=== PATIENT | female | born 1980 | race Caucasian/White ===

== ENCOUNTER 2021-03-15 11:07 | Emergency (ER) | payer OTHER, SELFPAY ==
[2021-03-15 11:31] VITALS: BP 119/88; PULSE 78; RESP 16; TEMP 36.7; O2SAT 99
[2021-03-15 12:11] VITALS: BP 115/77; PULSE 79; RESP 16; TEMP 36.8; O2SAT 100
[2021-03-15 12:14] LABS: Add Urine Microscopic? YES; Appearance Urine Cloudy (Clear); Bilirubin Urine Negative (Negative); Blood Urine 1+ (Negative); Color Urine Yellow (Yellow); Glucose Urine UA Negative (Negative); Ketones Urine Negative (Negative); Leukocyte Esterase Ur 2+ LEU/UL (Negative); Mucus Urine Rare /lpf; Nitrate Urine Negative (Negative); Protein Urine Negative (Negative); Specific Grav Ur 1.018 (1.001-1.035); Squamous Epithelial Cell Urine Few /hpf (Few); Urobilinogen Urine Negative mg/dL (<2.0); WBC Urine 51-75 /hpf
--- NOTE | 2021-03-15 12:38 | ED.FEMALEGU ---
HPI - Female Genitourinary General Chief complaint: Urogenital-Female Stated complaint: lower abd pain Time Seen by Provider: 03/15/21 12:18 Source: patient and RN notes reviewed Mode of arrival: ambulatory Limitations: no limitations History of Present Illness HPI Narrative: Patient presents with frequent urination and burning sensation and some pain at the left lower back. Patient denies any fever, chills, nausea, vomiting, vaginal bleeding or discharge. Related Data Home Medications Medication Instructions Recorded Confirmed acyclovir 03/15/21 Allergies Allergy/AdvReac Type Severity Reaction Status Date / Time dicyclomine Allergy Unknown Other Verified 03/15/21 12:19 Review of Systems Review of Systems: CONSTITUTIONAL: Denies fever, chills, or sweats. EYES: Denies visual changes, redness, or discharge. ENT: Denies rhinorrhea, congestion, sore throat, or otalgia. CARDIOVASCULAR: Denies chest pain, palpitations, or edema. RESPIRATORY: Denies cough or dyspnea. GASTROINTESTINAL: Denies abdominal pain, nausea, vomiting, or diarrhea. GENITOURINARY: Denies dysuria or hematuria. SKIN: Denies rash or itching. MUSCULOSKELETAL: Denies back pain, joint pain, or myalgia. NEUROLOGIC: Denies headache, numbness, or weakness. PSYCHIATRIC: Denies anxiety or depression. Exam Narrative: General appearance: Well-developed, well-nourished Skin: Normal color Head: Normocephalic, nontraumatic Eyes: Clear conjunctiva ENT: Oropharynx normal, ears normal, nose normal Neck: Supple, nontender Chest and respiratory: Airway patent, no respiratory distress, no accessory muscle use Heart: Regular rate/rhythm Abdomen: Soft, nontender, no organomegaly, quiet bowel sounds slight left lower quadrant and left tenderness Vascular: Normal peripheral pulses, normal capillary refill. 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, no gross motor deficit Course Course Emergency Course: Stable Vital Signs Vital signs: Vital Signs Temperature 36.7 C 03/15/21 11:31 Pulse Rate 78 03/15/21 11:31 Respiratory Rate 16 03/15/21 11:31 Blood Pressure 119/88 03/15/21 11:31 Pulse Oximetry 99 03/15/21 11:31 Temperature 36.8 C 03/15/21 12:11 Pulse Rate 79 03/15/21 12:11 Respiratory Rate 16 03/15/21 12:11 Blood Pressure 115/77 03/15/21 12:11 Pulse Oximetry 100 03/15/21 12:11 MDM - Female Genitourinary MDM Narrative Medical decision making narrative: UTI is my concern Differential Diagnosis Differential diagnosis: Likely urinary tract infection Lab Data Labs: Lab Results 03/15/21 Range/Units 11:40 Urine Color Yellow (Yellow) Urine Appearance Cloudy H (Clear) Urine pH 6.0 (5.0-9.0) Ur Specific [place] 1.018 (1.001-1.035) Urine Protein Negative (Negative) mg/dL Urine Glucose (UA) Negative (Negative) mg/dL Urine Ketones Negative (Negative) mg/dL Ur Blood (Man) 1+ H (Negative) Urine Nitrate Negative (Negative) Urine Bilirubin Negative (Negative) Urine Urobilinogen Negative (<2.0) mg/dL Leukocyte Esterase Rfl 2+ H (Negative) NIMO/UL Urine RBC 6-10 H (0-2) /hpf Urine WBC 51-75 H /hpf Ur Squamous Epith Cells Few (Few) /hpf Urine Mucus Rare /lpf Critical Care Time Critical Care Time Critical Care Time: No Discharge Plan Discharge Clinical Impression: Urinary tract infection Patient Disposition: Home, Self-Care Condition: Stable Instructions: Antibiotic Form, Urinary Tract Infection in Women (ED) Additional Instructions: Return if symptoms are worsening , call your family physician for appoin
[2021-03-15 13:06] VITALS: BP 115/78; PULSE 77; RESP 16; O2SAT 100
== END 2021-03-15 13:07 | disposition home or self-care (01) ==
PROVIDERS: Emergency Medicine; Emergency Provider Emergency Medicine; PCP Internal Medicine
DX: N39.0 Urinary tract infection, site not specified (principal)
CPT/HCPCS: 81001; 87077; 87086; 87088; 87186; 99283

== ENCOUNTER 2022-01-24 07:56 | Emergency (ER) | payer OTHER, SELFPAY ==
[2022-01-24] VITALS (17 sets, daily range): BP systolic 108–141; BP diastolic 71–88; PULSE 73–99; RESP 10–20; TEMP 36.8; O2SAT 98–99
--- NOTE | ~2022-01-24 | XR_ITS ---
XR chest 2V DATE: 01/24/2022 08:30 INDICATION: Cough, shortness of breath, congestion TECHNIQUE: PA and lateral views COMPARISON: 02/20/2018 PA and lateral chest FINDINGS: Normal heart size. No pulmonary infiltrate or consolidation, pleural effusion or pulmonary vascular congestion or pneumothorax is detected. No hilar or mediastinal enlargement. There is minimal levoscoliosis of the thoracic spine. IMPRESSION: No active cardiopulmonary disease Reviewed, dictated and finalized at location A.
--- NOTE | 2022-01-24 08:01 | ECG_ITS ---
Measurements Intervals [place] Rate: 79 P: 58 VA: 179 QRS: 39 QRSD: 75 T: 26 QT: 332 QTc: 381 Interpretive Statements SINUS RHYTHM SEPTAL MYOCARDIAL INFARCTION , PROBABLY OLD Electronically Signed On 01-24-2022 10:04:56 CDT by Camden Florence M.D.
[2022-01-24 08:23] LABS: Basophils Percent Auto 0.3 % (0.2-1.2); Eosinophils Absolute Auto 0.1 K/mm3 (0-0.3); Eosinophils Percent Auto 0.8 % (0-4.4); Hematocrit 42.6 % (37.0-47.0); Hemoglobin 13.7 g/dL (12.0-15.0); Immature Granulocyte Absolute 0.02 K/mm3 (0.00-0.031); Immature Granulocyte Percent A 0.2 % (0-0.5); Lymphocytes Absolute Auto 1.02 K/mm3 (0.9-3.2); Lymphocytes Percent Auto 11.4 % (18.3-44.2); Mean Corpuscular HGB Conc 32.2 g/dl (32-36); Mean Corpuscular Hemoglobin 29.5 pg (26-34); Mean Corpuscular Volume 91.8 fl (80-100); Mean Platelet Volume 10.1 fl (7.4-10.4); Monocytes Absolute Auto 0.4 K/mm3 (0.1-0.6); Monocytes Percent Auto 4.7 % (2.6-8.5); Neutrophils Absolute Auto 7.4 K/mm3 (1.3-6.7); Neutrophils Percent Auto 82.6 % (45.5-73.1); Platelet Count Result 202 k/mm3 (150-375); Red Blood Count 4.64 M/mm3 (4.2-5.4); Red Cell Distribution Width 14.4 % (11.5-14.5); White Blood Count 8.9 K/mm3 (4.5-10.0)
[2022-01-24 08:33] LABS: Alanine Aminotransferase 25 U/L (6-35); Albumin Level 4.5 g/dL (3.5-5.1); Alkaline Phosphatase 67 U/L (38-126); Anion Gap 4 mmol/L (8-16); Aspartate Amino Transferase 29 U/L (14-36); Bilirubin,Total 1.1 mg/dL (0.2-1.3); Blood Urea Nitrogen 11 mg/dL (7-17); Calcium 8.6 mg/dL (8.4-10.2); Carbon Dioxide 27 mmol/L (22-30); Chloride 109 mmol/L (98-107); Estimated CRCL calculation 83 ml/min; Estimated Glomerular Filt Rate > 60; Glucose 138 mg/dL (65-110); Potassium 3.6 mmol/L (3.4-5.0); Sodium 140 mmol/L (137-145)
--- NOTE | 2022-01-24 10:35 | ED.SOB ---
HPI - SOB/Dyspnea General Chief Complaint: Shortness of Breath/Dyspnea Stated Complaint: I think I have hay fever Time Seen by Provider: 01/24/22 08:21 Source: patient and family Mode of arrival: ambulatory Limitations: no limitations History of Present Illness HPI Narrative: 41-year-old otherwise healthy here with complaints of nonproductive cough for past few days. She denies any fever or chills. No previous history of asthma or COPD. She thinks she may have Hay fever . MD elicited complaint: shortness of breath and cough Onset (ago): day(s) (4) Timing: constant Severity: mild Exacerbating factors: nothing Relieving factors: nothing Associated symptoms: denies other symptoms Related Data Home oxygen amount: none Home Medications Medication Instructions Recorded Confirmed acyclovir 800 mg tablet 03/15/21 Allergies Allergy/AdvReac Type Severity Reaction Status Date / Time dicyclomine Allergy Unknown Other Verified 01/24/22 08:10 Review of Systems Review of Systems: All systems reviewed & are unremarkable except as noted in HPI and below Constitutional: Constitutional: Reports no additional constitutional complaints Eyes: Eyes: Reports no additional eye complaints ENT: Reports system reviewed and no additional complaints, except as documented Cardiovascular: Cardiovascular: Reports no additional cardiovascular complaints Respiratory: Respiratory: Reports as per HPI Gastrointestinal: Gastrointestinal: Reports no additional gastrointestinal complaints Musculoskeletal: Musculoskeletal: Reports no additional musculoskeletal complaints Integumentary/Breasts: Skin/Breast: Reports system reviewed and no additional complaints, except as docu Neurologic: Reports system reviewed and no additional complaints, except as documented Psychiatric: Psychiatric: Reports no additional psychiatric complaints Exam Narrative: GENERAL: Well-appearing, well-nourished, and in no acute distress. HEAD: Normocephalic, atraumatic. EYES: PERRLA and EOMI NECK: Supple. CHEST: Clear to auscultation. No respiratory distress. HEART: Regular rate and rhythm. No murmur heard. Normal peripheral pulses. ABDOMEN: Soft, nontender, nondistended, normal active bowel sounds. EXTREMITIES: Normal range of motion. No edema. SKIN: Warm, dry, no rash. NEURO: No focal deficits. Alert and oriented x3. PSYCH: Normal mood and affect. Course Course Emergency Course: 41-year-old otherwise healthy with no history of COPD or asthma now has dry nonproductive cough with no fever CBC, chemistry and chest x-ray were normal advised her to take prednisone, follow-up with her primary doctor Vital Signs Vital signs: Vital Signs Temperature 36.8 C 01/24/22 08:02 Pulse Rate 91 01/24/22 08:02 Respiratory Rate 18 01/24/22 08:02 Blood Pressure 126/77 01/24/22 08:02 Pulse Oximetry 99 01/24/22 08:02 Oxygen Delivery Room Air 01/24/22 08:02 Temperature 36.8 C 01/24/22 08:02 Pulse Rate 91 01/24/22 08:11 Respiratory Rate 18 01/24/22 08:02 Blood Pressure 126/77 01/24/22 08:02 Pulse Oximetry 99 01/24/22 08:02 Oxygen Delivery Room Air 01/24/22 08:02 MDM - SOB/Dyspnea Lab Data Result diagrams: 01/24/22 08:19 01/24/22 08:19 Labs: Lab Results 01/24/22 01/24/22 Range/Units 08:19 08:19 WBC 8.9 (4.5-10.0) K/mm3 RBC 4.64 (4.2-5.4) M/mm3 Hgb 13.7 (12.0-15.0) g/dL Hct 42.6 (37.0-47.0) % MCV 91.8 (80-100) fl MCH 29.5 (26-34) pg MCHC 32.2 (32-36) g/dl RDW 14.4 (11.5-14.5) % Plt Count 202 (150-375) k/mm3 MPV 10.1 (7.4-10.4) fl Immature Gran % (Auto) 0.2 (0-0.5) % Neut % (Auto) 82.6 H (45.5-73.1) % Lymph % (Auto) 11.4 L (18.3-44.2) % [place] % (Auto) 4.7 (2.6-8.5) % Eos % (Auto) 0.8 (0-4.4) % Baso % (Auto) 0.3 (0.2-1.2) % Lymph # (Auto) 1.02 (0.9-3.2) K/mm3 [place] # (Auto) 0.4 (0.1-0.6) K/mm3 Eos # (Auto) 0.1
== END 2022-01-24 10:56 | disposition home or self-care (01) ==
PROVIDERS: Emergency Medicine; Emergency Provider Family Medicine; PCP Internal Medicine
DX: J40 Bronchitis, not specified as acute or chronic (principal); B34.9 Viral infection, unspecified; R94.31 Abnormal electrocardiogram [ECG] [EKG]
CPT/HCPCS: 36415; 71046; 80053; 85025; 93005; 99284

== ENCOUNTER 2023-02-08 14:30 | Emergency (ER) | payer OTHER, SELFPAY ==
[2023-02-08 14:41] VITALS: BP 121/77; PULSE 83; RESP 18; TEMP 36.3; O2SAT 100
--- NOTE | 2023-02-08 15:52 | ED.FEMALEGU ---
HPI - Female Genitourinary General Chief complaint: Urogenital-Female Stated complaint: vaginal infection Time Seen by Provider: 02/08/23 15:24 History of Present Illness HPI Narrative: 42-year-old female presents to the emergency room for evaluation of vaginal discomfort and discharge. Patient states that she had unprotected intercourse 4 days ago and yesterday began developing a foul-smelling vaginal discharge. Patient also states that her sexual partner was well endowed, and she has been experiencing pelvic pain with some scant amount of bleeding since having intercourse. Related Data Home Medications Medication Instructions Recorded Confirmed acyclovir 800 mg tablet 03/15/21 Allergies Allergy/AdvReac Type Severity Reaction Status Date / Time dicyclomine Allergy Unknown Other Verified 01/24/22 08:10 Review of Systems Review of Systems: CONSTITUTIONAL: Denies fever, chills, or sweats. EYES: Denies visual changes, redness, or discharge. ENT: Denies rhinorrhea, congestion, sore throat, or otalgia. CARDIOVASCULAR: Denies chest pain, palpitations, or edema. RESPIRATORY: Denies cough or dyspnea. GASTROINTESTINAL: Denies abdominal pain, nausea, vomiting, or diarrhea. GENITOURINARY: Denies dysuria or hematuria. SKIN: Denies rash or itching. MUSCULOSKELETAL: Denies back pain, joint pain, or myalgia. NEUROLOGIC: Denies headache, numbness, dizziness, or weakness. PSYCHIATRIC: Denies anxiety or depression. Exam Narrative: GENERAL: Well-appearing, well-nourished, no physical limitations, and in no acute distress. HEAD: Normocephalic, atraumatic. EYES: Conjunctivae normal, PERRLA and EOMI. CHEST: Clear to auscultation. No respiratory distress. No wheezes rales or rhonchi. HEART: Regular rate and rhythm. No murmur heard. Normal peripheral pulses. ABDOMEN: Soft, suprapubic tenderness,, nondistended, normal active bowel sounds. : Deferred EXTREMITIES: Normal range of motion. No edema. No clubbing or cyanosis SKIN: Warm, dry, no rash. No noted wounds NEURO: No focal deficits. Alert and oriented x3. MAEW. CN's II-XI intact bilaterally, normal gait PSYCH: Cooperative. Normal mood and affect. Course Vital Signs Vital signs: Vital Signs Temperature 36.3 C L 02/08/23 14:41 Pulse Rate 83 02/08/23 14:41 Respiratory Rate 18 02/08/23 14:41 Blood Pressure 121/77 02/08/23 14:41 Pulse Oximetry 100 02/08/23 14:41 Oxygen Delivery Room Air 02/08/23 14:41 Temperature 36.3 C L 02/08/23 14:41 Pulse Rate 83 02/08/23 14:41 Respiratory Rate 18 02/08/23 14:41 Blood Pressure 121/77 02/08/23 14:41 Pulse Oximetry 100 02/08/23 14:41 Oxygen Delivery Room Air 02/08/23 14:41 MDM - Female Genitourinary Lab Data Labs: Lab Results 02/08/23 02/08/23 Range/Units 15:52 16:00 Urine Color Yellow (Yellow) Urine Appearance Cloudy H (Clear) Urine pH 5.5 (5.0-9.0) Ur Specific [place] 1.027 (1.001-1.035) Urine Protein Negative (Negative) mg/dL Urine Glucose (UA) Negative (Negative) mg/dL Urine Ketones Negative (Negative) mg/dL Ur Blood (Man) Trace (Negative) Urine Nitrate Negative (Negative) Urine Bilirubin Negative (Negative) Urine Urobilinogen 0.2 (<2.0) mg/dL Leukocyte Esterase Rfl 1+ H (Negative) NIMO/UL Urine RBC 3-5 H (0-2) /hpf Urine WBC 11-20 H /hpf Ur Squamous Epith Cells None seen (Few) /hpf Urine Bacteria None seen /hpf Urine Casts 0-2 C.trachomatis RNA (TMA) Pending N.gonorrhoeae RNA (TMA) Pending Trichomonas Direct ID Negative (Negative) Bact Vaginosis Panel Pending Discharge Plan Discharge Clinical Impression: Vaginal discharge, High risk sexual behavior Patient Disposition: Home, Self-Care Condition: Stable Instructions: Antibiotic Form, Bacterial Vaginosis (ED), Sexually Transmitted Diseases (ED) Additional Instructions: Follow-up with your FAMILY PROTECTION SPECIALIST in 7 to 10
[2023-02-08 16:00] LABS: Appearance Urine Cloudy (Clear); Bacteria Urine None Seen /hpf; Bilirubin Urine Negative (Negative); Blood Urine Trace (Negative); Color Urine Yellow (Yellow); Glucose Urine UA Negative (Negative); Ketones Urine Negative (Negative); Leukocyte Esterase Ur 1+ LEU/UL (Negative); Nitrate Urine Negative (Negative); Non Pathogenic Casts 0-2; Protein Urine Negative (Negative); Specific Grav Ur 1.027 (1.001-1.035); Squamous Epithelial Cell Urine None seen /hpf (Few); Urobilinogen Urine 0.2 mg/dL (<2.0); pH Urine 5.5 (5.0-9.0)
[2023-02-08 16:04] LABS: Add Urine Microscopic? YES
[2023-02-08] MEDS: cefTRIAXone 1 GM VIAL 0.5 GM IM (16:55)
[2023-02-08 17:00] VITALS: BP 117/72; PULSE 76; RESP 16; O2SAT 98
[2023-02-14 15:06] LABS: Bacterial Vaginosis Positive (Negative)
== END 2023-02-08 17:00 | disposition home or self-care (01) ==
PROVIDERS: Emergency Provider Nurse Practitioner Family; PCP Internal Medicine
DX: N89.8 Other specified noninflammatory disorders of vagina (principal); Z72.51 High risk heterosexual behavior
CPT/HCPCS: 81001; 81513; 87086; 87088; 87147; 87491; 87591; 87808; 96372; 99284; J0696

== ENCOUNTER 2023-11-09 15:59 | Emergency (ER) | payer OTHER, SELFPAY ==
--- NOTE | ~2023-11-09 | CT_ITS ---
EXAMINATION: CT abdomen pelvis w con DATE: 11/09/2023 18:02 INDICATION: left lower quadrant/pelvic pain, hx endometrosis TECHNIQUE: Computed tomography (CT) of the abdomen and pelvis was performed with 100 mL Omnipaque-350 intravenous contrast. Automated exposure control and iterative reconstruction technique were employe d. The dose-length product was 183.48 mGy-cm. COMPARISON: None. FINDINGS: Lower thorax: Unremarkable Liver: Multiple hepatic cysts measuring up to 6.3 cm in the right liver lobe. Several subcentimeter h ypodensities, too small to characterize, most likely representing cysts or hemangiomas. Biliary/Gallbladder: Gallbladder is partially contracted. No bile duct dilation. Pancreas: No mass or duct dilation. Spleen: Normal. Adrenals:No mass. Kidneys: No suspicious mass, obstructing stone, or hydronephrosis. GI tract: No small or large bowel dilation. Inflamed diverticulum with surrounding pericolonic inflam matory change at the junction of the descending colon and sigmoid in the left lower quadrant. Normal appendix. Mesentery/Peritoneum: No ascites, mass, or free air. Retroperitoneum: No mass. Pelvis: Pelvic organs are within normal limits. IUD, in good position Soft Tissues: Soft tissues and body wall unremarkable. Bones: No acute osseous finding. IMPRESSION: Acute uncomplicated diverticulitis. Reviewed, dictated and finalized at location K.
[2023-11-09 16:06] VITALS: BP 136/70; PULSE 79; RESP 20; TEMP 36.6; O2SAT 97
--- NOTE | 2023-11-09 16:34 | ED.ABDPAIN ---
HPI - Abdominal Pain General Chief Complaint: Abdominal Pain <Klaus Mayorga APRN - Last Filed: 11/09/23 16:42> Stated Complaint: pain lower left side since sunday <Klaus Mayorga APRN - Last Filed: 11/09/23 16:42> Time Seen by Provider: 11/09/23 16:34 <Klaus Mayorga APRN - Last Filed: 11/09/23 16:42> Focused HPI: Ruma is a 43-year-old female patient presenting to the ER today with complaints of left lower quadrant/pelvic pain that started on Sunday night. She reports the pain is now a dull aching burning sensation and is radiating to the anterior thigh. Denies any urinary symptoms. Denies any fevers, chills, or body aches. History of endometriosis. No injury to the left hip. Has an IUD in place. Last bowel movement was today and soft/liquid. Denies any flank pain. No history of diverticulosis/diverticulitis GENERAL: Well-appearing, well-nourished, and in no acute distress. HEAD: Normocephalic, atraumatic. CHEST: Clear to auscultation. No respiratory distress. HEART: Regular rate and rhythm. NEURO: Alert and oriented x3. Patient screened in triage and initial orders placed. Additional care and disposition to be based upon diagnostic testing and treatment. <Klaus Mayorga APRN - Last Filed: 11/09/23 16:42> Source: patient <Klaus Mayorga APRN - Last Filed: 11/09/23 16:42> Mode of arrival: ambulatory <Klaus Mayorga APRN - Last Filed: 11/09/23 16:42> Limitations: no limitations <Klaus Mayorga APRN - Last Filed: 11/09/23 16:42> Related Data Home Medications: Home Medications Medication Instructions Recorded Confirmed acyclovir 800 mg tablet 03/15/21 <Klaus Mayorga APRN - Last Filed: 11/09/23 16:42> Allergies/Adverse Reactions: Allergies Allergy/AdvReac Type Severity Reaction Status Date / Time dicyclomine Allergy Unknown Other Verified 11/09/23 16:04 <Klaus Mayorga APRN - Last Filed: 11/09/23 16:42> PMFSH Comments At the time of my signature, I reviewed and agree with the nursing past medical, surgical, social, and family history. There is no relevant family history pertinent to the patient complaint. <Klaus Mayorga APRN - Last Filed: 11/09/23 16:42> Exam Narrative: APPEARANCE: No apparent distress. Head: atraumatic. EYES: EOMI, NOSE: Atraumatic NECK: Trachea midline RESPIRATORY: No increased rate of breathing CARDIOVASCULAR: RRR, ABDOMINAL: tenderness palpation left lower quadrant MUSCULOSKELETAl: infection of the left groin was unremarkable with no overlying skin changes palpable pulses. NEURO: Alert. Moving 4/4 extremities SKIN:: Warm, dry. Normal color PSYCHIATRIC: Normal affect <Lei Crook MD - Last Filed: 11/09/23 18:45> Course Course Emergency Course: Portions of this record may have been created with voice recognition software. <Klaus Mayorga APRN - Last Filed: 11/09/23 16:42> Vital Signs Vital signs: Vital Signs Temperature 97.8 F 11/09/23 16:06 Pulse Rate 79 11/09/23 16:06 Respiratory Rate 20 11/09/23 16:06 Blood Pressure 136/70 11/09/23 16:06 Pulse Oximetry 97 11/09/23 16:06 Oxygen Delivery Room Air 11/09/23 16:06 Temperature 97.8 F 11/09/23 16:06 Pulse Rate 79 11/09/23 16:06 Respiratory Rate 20 11/09/23 16:06 Blood Pressure 136/70 11/09/23 16:06 Pulse Oximetry 97 11/09/23 16:06 Oxygen Delivery Room Air 11/09/23 16:06 Vital signs reviewed <Klaus Mayorga APRN - Last Filed: 11/09/23 16:42> Vital Signs Temperature 97.8 F 11/09/23 16:06 Pulse Rate 79 11/09/23 16:06 Respiratory Rate 20 11/09/23 16:06 Blood Pressure 136/70 11/09/23 16:06 Pulse Oximetry 97 11/09/23 16:06 Oxygen Delivery Room Air 11/09/23 16:06 Temperature 97.8 F 11/09/23 16:06 Pulse Rate 79 11/09/23 16:06 Respiratory Rate 20 11/09/23 16:06 Blood Pressure 136/70 04
[2023-11-09 17:13] LABS: Basophils Percent Auto 0.5 % (0.2-1.2); Eosinophils Percent Auto 0.5 % (0-4.4); Hematocrit 40.2 % (37.0-47.0); Hemoglobin 13.1 g/dL (12.0-15.0); Immature Granulocyte Absolute 0.01 K/mm3 (0.00-0.031); Immature Granulocyte Percent A 0.2 % (0-0.5); Lymphocytes Absolute Auto 1.73 K/mm3 (0.9-3.2); Lymphocytes Percent Auto 27.9 % (18.3-44.2); Mean Corpuscular HGB Conc 32.6 g/dl (32-36); Mean Corpuscular Hemoglobin 27.6 pg (26-34); Mean Corpuscular Volume 84.8 fl (80-100); Mean Platelet Volume 10.5 fl (7.4-10.4); Monocytes Absolute Auto 0.4 K/mm3 (0.1-0.6); Monocytes Percent Auto 6.3 % (2.6-8.5); Neutrophils Percent Auto 64.6 % (45.5-73.1); Platelet Count Result 248 k/mm3 (150-375); Red Blood Count 4.74 M/mm3 (4.2-5.4); Red Cell Distribution Width 14.7 % (11.5-14.5); White Blood Count 6.2 K/mm3 (4.5-10.0)
[2023-11-09 17:19] LABS: Appearance Urine Clear (Clear); Bacteria Urine None Seen /hpf; Bilirubin Urine Negative (Negative); Blood Urine 1+ (Negative); Color Urine Yellow (Yellow); Glucose Urine UA Negative (Negative); Ketones Urine Trace mg/dL (Negative); Leukocyte Esterase Ur Negative LEU/UL (Negative); Nitrate Urine Negative (Negative); Non Pathogenic Casts 0-2; Protein Urine Trace mg/dL (Negative); RBC Urine 21-50 /hpf (0-2); Specific Grav Ur 1.027 (1.001-1.035); Squamous Epithelial Cell Urine Occasional /hpf (Few); WBC Urine 0-5 /hpf (0-3)
[2023-11-09 17:30] LABS: Add Urine Microscopic? YES
[2023-11-09 17:34] LABS: Alanine Aminotransferase 35 U/L (6-35); Albumin Level 4.4 g/dL (3.5-5.1); Alkaline Phosphatase 85 U/L (38-126); Anion Gap 6 mmol/L (4-12); Aspartate Amino Transferase 33 U/L (14-36); Blood Urea Nitrogen 16 mg/dL (7-17); Calcium 9.6 mg/dL (8.4-10.2); Carbon Dioxide 29 mmol/L (22-30); Chloride 104 mmol/L (98-107); Estimated CRCL calculation 76 ml/min; Estimated Glomerular Filt Rate > 60; Glucose 92 mg/dL (65-110); Lipase 81 U/L (23-300); Potassium 3.4 mmol/L (3.4-5.0); Sodium 139 mmol/L (137-145)
[2023-11-09] MEDS: ACETAMINOPHEN 500 MG TABLET 1000 MG PO (18:58)
[2023-11-09] MEDS: AMOXICILLIN/CLAVULANATE K 875-125 MG TAB 1 TABLET PO (18:58)
[2023-11-09] MEDS: IBUPROFEN 400 MG TABLET 800 MG PO (18:58)
[2023-11-09 19:04] VITALS: BP 125/93; PULSE 80; RESP 20; O2SAT 99
== END 2023-11-09 19:05 | disposition home or self-care (01) ==
PROVIDERS: Nurse Practitioner Family; Emergency Provider Emergency Medicine; PCP Internal Medicine
DX: K57.92 Diverticulitis of intestine, part unspecified, without perforation or abscess without bleeding (principal)
CPT/HCPCS: 36415; 74177; 80053; 81001; 81025; 83690; 85025; 99284; A9270; Q9967